=== PATIENT | female | born 1950 | race Caucasian/White ===

== ENCOUNTER 2024-02-09 16:02 | Inpatient (IN) | payer OTHER, SELFPAY ==
[2024-02-09] VITALS (15 sets, daily range): BP systolic 106–144; BP diastolic 55–75; PULSE 52–55; BMI 27.2; BMI 25.9
[2024-02-09 11:28] LABS: Glucose - Point of Care 174 mg/dl (70-99)
--- NOTE | 2024-02-09 12:09 | ED.GENMED ---
History of Present Illness
<Coty Oreilly PA-C - Last Filed: 02/09/24 16:38>
General
Chief Complaint: Fainting/Passed Out
Source: patient
Exam Limitations: none
Time Seen by Provider: 02/09/24 11:47
Nursing documentation reviewed up to this point in time: agreed with
History of Present Illness
History of Present Illness:
Patient is a 73-year-old female with history of PE on Eliquis presenting to the emergency department following syncopal event this morning. Patient unable to contribute to history given Alzheimer's. Patient's states they are both sitting
down at the breakfast table eating when he was reading the newspaper and looked over and patient was slumped over. states that she seemed to be 'unconscious 'and not responding to him for about 3 minutes. When patient did wake up she had
an episode of vomiting. Patient's states she did not complain of any preceding symptoms prior to loss of consciousness. Patient states it was 'sudden'.
At this time�patient is asymptomatic and specifically denies any chest pain, shortness of breath, headache, dizziness, numbness/tingling, nausea/vomiting, or abdominal pain.
Patient's does report similar event a few weeks ago, although at that time she was standing. In addition�patient had an episode about 6 months ago while moving from bathtub to shower and it was thought to be due to a vasovagal response.
Patient does have a history of pulmonary embolism for which she takes Eliquis 5 mg twice a day.
Past History
<Coty Oreilly PA-C - Last Filed: 02/09/24 16:38>
Past History
ED Past Medical History: Hypercholesterolemia and Other (Early dementia, migraines)
ED Past Surgical History: Orthopedic
Social History
Tobacco: Non-smoker
Review of Systems
<Coty Oreilly PA-C - Last Filed: 02/09/24 16:38>
Review of Systems
Allergies reviewed?: Yes
All Other Systems: ROS reviewed and negative except as documented in HPI and ROS
Phy Exam
<Coty Oreilly PA-C - Last Filed: 02/09/24 16:38>
Physical Exam
Physical Exam:
Vitals: Patient's vital signs are stable. Afebrile
General: Patient is well appearing, no acute distress
Skin: Warm and dry, no rashes or lesions
Head: Normocephalic, atraumatic
Eyes: Sclera nonicteric. EOMs intact. No nystagmus.
Throat: Protecting airway
Neck: Normal ROM, no cervical spine tenderness, no meningismus
Cardiac: Regular rate and rhythm, no murmurs.
Pulm: Normal respiratory effort, no wheezes, rales, rhonchi heard on exam.
Abdomen: Abdomen soft. No abdominal tenderness.
Extremities: No evidence of cyanosis or edema
Neuro: Alert. Grossly intact.
Psychiatric: Normal affect.
Course
<Coty Oreilly PA-C - Last Filed: 02/09/24 16:38>
Orders/Labs/Results
Orders:
Orders
02/09/24 11:24
Electrocardiogram (*1) Urgent
Reason for Study: Syncope
EKG- Treatment ONCE
02/09/24 12:22
Orthostatic VS- Treatment ONCE
0.9% Sodium Chloride 1000 ml [Nss] 1,000 ml IV BOLUS
02/09/24 12:53
Complete Blood Count/With Diff Urgent
Comprehensive Metabolic Panel Urgent
TSH Reflex To Free T4 Stat
Troponin I Urgent
02/09/24 15:20
Echo 2D MMode Color/Doppler Routine
Reason for Study: syncope
02/09/24 15:43
EEG Routine Routine
Reason for Exam: syncope with shaking
MRI Brain [MR Brain Without Contrast] Routine
Comment:
Reason For Exam: syncope
Recent pill cam endoscopy?: No
Carotid US [US Cerebrovascular] Routine
Comment:
Reason For Exam: r/o carotid stenosis
02/09/24 15:44
CARDIOLOGY CONSULT Routine
Consulting Provider: Carole Hogan
Was physician already notified: Yes
Reason for consult: syncope
02/09/24 15:50
Admit/Transfer Patient As Directed
Co-Sign Provider:
Level of Care: Inpatient admission
Assign to:: Telemetry
Physician / Group: billie jenkins
Diagnosis: syncope
Reason for Telemetry: Syncope
Date to Stop Telemetry: 02/11/24
Time to Stop Telemetry: 11:00
Reason for Hospitalization: syncope
Expected length of stay greater than two midnights?: Yes
ELOS- Estimated Length of Stay in days: 3
I certify the patient meets the requirements for IP care: Yes
PRN Pain Medication Management As Directed
May give lesser potent ordered pain med per pt: No
preference::
Protocol:: Medication orders for pain may NOT be administered in
a manner that defers to patient preference. Follow
all order instructions as written.
Contact provider if ordering parameters for pain need
to be adjusted.
02/09/24 15:54
Code Status As Directed
Resuscitation Status: Full Code
02/09/24 20:00
Apixaban [Eliquis] 5 mg PO BID
Memantine HCl [Namenda] 10 mg PO BID
melatonin 10 mg PO BID
02/09/24 22:00
donepezil 23 mg PO HS
02/10/24 06:00
TSH Reflex To Free T4 IN AM
Levothyroxine [Synthroid] 50 mcg PO DAILY@0600
02/10/24 08:00
Cholecalciferol (Vitamin D3) [VITAMIN D3 (cholecalciferol)] 125 mcg PO DAILY
Cyanocobalamin [Vitamin B-12] 1,000 mcg PO DAILY
[place] Orotate Capsules 1,000 mcg PO DAILY
02/11/24 11:00
DC Protocol for Telemetry ONCE
Abnormal Lab Results
02/09/24 02/09/24
11:27 12:53
RBC 4.16 L 10^6/uL
(4.20-5.40)
MCH 32.9 H pg
(27.0-31.0)
Absolute Lymphs (auto) 1.1 L 10^3/uL
(1.2-3.4)
Immature Gran % 0.6 H %
(0-0.5)
Lymphocytes % 16.7 L %
(20.5-51.1)
Glucose 168 H mg/dl
(70-99)
POC Glucose 174 H mg/dl
(70-99)
02/09/24 12:53
02/09/24 12:53
Vital Signs
Initial and Last Documented VS:
Initial Vital Signs
Temp Pulse Resp BP Pulse Ox
98.5 F 53 18 113/56 97
02/09/24 11:24 02/09/24 11:24 02/09/24 11:24 02/09/24 11:24 02/09/24 11:24
Last Documented Vital Signs
Temp Pulse Resp BP Pulse Ox
98.5 F 48 16 126/64 96
02/09/24 11:24 02/09/24 15:00 02/09/24 14:00 02/09/24 15:00 02/09/24 15:00
<Yoana Lomeli MD - Last Filed: 02/09/24 13:14>
Orders/Labs/Results
Orders:
Orders
02/09/24 11:24
Electrocardiogram (*1) Urgent
Reason for Study: Syncope
EKG- Treatment ONCE
02/09/24 12:22
Orthostatic VS- Treatment ONCE
0.9% Sodium Chloride 1000 ml [Nss] 1,000 ml IV BOLUS
02/09/24 12:53
Complete Blood Count/With Diff Urgent
Comprehensive Metabolic Panel Urgent
TSH Reflex To Free T4 Stat
Troponin I Urgent
02/09/24 15:20
Echo 2D MMode Color/Doppler Routine
Reason for Study: syncope
02/09/24 15:43
EEG Routine Routine
Reason for Exam: syncope with shaking
MRI Brain [MR Brain Without Contrast] Routine
Comment:
Reason For Exam: syncope
Recent pill cam endoscopy?: No
Carotid US [US Cerebrovascular] Routine
Comment:
Reason For Exam: r/o carotid stenosis
02/09/24 15:44
CARDIOLOGY CONSULT Routine
Consulting Provider: Carole Hogan
Was physician already notified: Yes
Reason for consult: syncope
02/09/24 15:50
Admit/Transfer Patient As Directed
Co-Sign Provider:
Level of Care: Inpatient admission
Assign to:: Telemetry
Physician / Group: billie jenkins
Diagnosis: syncope
Reason for Telemetry: Syncope
Date to Stop Telemetry: 02/11/24
Time to Stop Telemetry: 11:00
Reason for Hospitalization: syncope
Expected length of stay greater than two midnights?: Yes
ELOS- Estimated Length of Stay in days: 3
I certify the patient meets the requirements for IP care: Yes
PRN Pain Medication Management As Directed
May give lesser potent ordered pain med per pt: No
preference::
Protocol:: Medication orders for pain may NOT be administered in
a manner that defers to patient preference. Follow
all order instructions as written.
Contact provider if ordering parameters for pain need
to be adjusted.
02/09/24 15:54
Code Status As Directed
Resuscitation Status: Full Code
02/09/24 20:00
Apixaban [Eliquis] 5 mg PO BID
Memantine HCl [Namenda] 10 mg PO BID
melatonin 10 mg PO BID
02/09/24 22:00
donepezil 23 mg PO HS
02/10/24 06:00
TSH Reflex To Free T4 IN AM
Levothyroxine [Synthroid] 50 mcg PO DAILY@0600
02/10/24 08:00
Cholecalciferol (Vitamin D3) [VITAMIN D3 (cholecalciferol)] 125 mcg PO DAILY
Cyanocobalamin [Vitamin B-12] 1,000 mcg PO DAILY
[place] Orotate Capsules 1,000 mcg PO DAILY
02/11/24 11:00
DC Protocol for Telemetry ONCE
Abnormal Lab Results
02/09/24 02/09/24
11:27 12:53
RBC 4.16 L 10^6/uL
(4.20-5.40)
MCH 32.9 H pg
(27.0-31.0)
Absolute Lymphs (auto) 1.1 L 10^3/uL
(1.2-3.4)
Immature Gran % 0.6 H %
(0-0.5)
Lymphocytes % 16.7 L %
(20.5-51.1)
Glucose 168 H mg/dl
(70-99)
POC Glucose 174 H mg/dl
(70-99)
02/09/24 12:53
02/09/24 12:53
Vital Signs
Initial and Last Documented VS:
Initial Vital Signs
Temp Pulse Resp BP Pulse Ox
98.5 F 53 18 113/56 97
02/09/24 11:24 02/09/24 11:24 02/09/24 11:24 02/09/24 11:24 02/09/24 11:24
Last Documented Vital Signs
Temp Pulse Resp BP Pulse Ox
98.5 F 48 16 126/64 96
02/09/24 11:24 02/09/24 15:00 02/09/24 14:00 02/09/24 15:00 02/09/24 15:00
<Coty Oreilly PA-C - Last Filed: 02/09/24 16:38>
MDM/Problems Addressed
Differential Diagnosis Includes:
Not limited to: Cardiac arrhythmia, viral illness, orthostatic hypotension, vasovagal syncope, doubt PE
MDM/Problems Addressed:
73-year-old female with history Alzheimer's, PE on Eliquis presenting to the emergency department following sudden syncopal event lasting approximately 3 minutes this morning. Patient's reports a sudden syncopal event while patient was
sitting at kitchen table with no prodromal symptoms. Per patient's �patient was somewhat nonresponsive for approximately 3 minutes although breathing. Patient unable to contribute to history due to Alzheimer's. At time of my evaluation
patient is asymptomatic. Patient is borderline bradycardic although is otherwise hemodynamically stable. She is afebrile. Physical exam as above. Patient is well-appearing, in no apparent distress. Heart regular rate and rhythm. Lungs are
clear bilaterally. Abdomen is soft and nontender. Patient is perfusing well. No clinical evidence of DVT on exam. Differential broad at this time although considerations include possible cardiac arrhythmia, heart block, viral illness,
orthostatic hypotension. Do not suspect PE given patient is not hypoxic stable vital signs and compliant with Eliquis. EKG was obtained in triage which show sinus bradycardia without any acute ischemic findings. Will check basic labs, orthostatic
vital signs. Will initiate IV fluids. Will closely monitor and reassess. Anticipate admission given syncopal event with no clear prodrome.
Chronic conditions affecting care:
PE on Eliquis
Acute Exacerbation and/or Progression of Chronic Illness:
N/A
<Coty Oreilly PA-C - Last Filed: 02/09/24 16:38>
*Pulse Oximetry
Patient hypoxic: no
*EKG
Interpreted by ED Provider?: Yes
EKG Intrepretation Date: 02/09/24
Interpretation: abnormal
Comparison EKG: changes noted
Heart Rate: 54
Rate: bradycardiac
Rhythm: sinus
Ferguson: normal axis
Ischemia: non-specific ST changes
*Senior Biostatistician/Group Leader Interpretation
Rate: normal
Interpretation: normal
Heart Rate: 50
Rhythm: sinus
*Critical Care Note
Total Time (30-74mins, 75-104mins- exclusive of procedures): Not Applicable
<Coty Oreilly PA-C - Last Filed: 02/09/24 16:38>
Patient Management
Discussion with other providers: Hospitalist
Escalation/DeEscalation of care consider admission/obs:
Admit for further monitoring/evaluation
<Coty Oreilly PA-C - Last Filed: 02/09/24 16:38>
Update Note
Update Note:
Update: Labs reviewed. No clinically significant abnormalities on CBC or chemistry panel. Troponin is normal. TSH within normal levels. Orthostatic vital signs normal. Patient does remain asymptomatic at this time. Other workup in emergency
department negative at this time�feels sudden syncopal event without prodrome warrants admission for further observation/evaluation. Patient may benefit from echo and cardiac evaluation to rule out underlying structural heart disease versus
arrhythmia. Patient and patient's agreeable to admission. Patient accepted to hospital service in stable condition. Patient seen by attending physician.
ED Attending Note
<Coty Oreilly PA-C - Last Filed: 02/09/24 16:38>
-
Portions of this chart may have been created with voice recognition software.� Occasional wrong word or��sound alike� substitutions may have occurred due to the inherent limitations of voice recognition software.
<Yoana Lomeli MD - Last Filed: 02/09/24 13:14>
ED Attending Note
Patient seen and examined by attending physician: Yes
I performed the substantive portion of visit, reviewed & personally made and approve the management plan that is documented in note by myself or SMITA.: Yes
ED Attending Note:
Patient is a 73-year-old woman with history of Alzheimer's, PE on Eliquis presenting to the emergency department after syncopal event. Patient has no recollection of the event. States that she was feeling fine and currently has complaints.
Patient's is at bedside who states that they were eating breakfast when he looked up and patient was slumped over and unresponsive for 3 minutes. She was not pale or cyanotic. She woke up slightly confused. She has passed out once before
without a prodrome. Has never been worked up. Vitals here notable for heart rate in the 50s. Exam shows a woman who is well-appearing. She is a regular rate and rhythm. Abdomen is benign. Given that the syncopal event was without a prodrome I
am concerned about cardiac etiology. History and exam not consistent with vasovagal. Will check blood work EKG. Patient will need admission for monitoring.
Discharge Plan
Departure
Patient Disposition: Admit
Date of Disposition: 02/09/24
Time of Disposition: 14:27
Presentation/result/management discussed w/ accepting MD/DO: Hospitalist
Discharge Problem:
Syncope
Interventions
Interventions:
*Risk Screen - Suicide Last Done: 02/09/24 11:24
*General Assessment Last Done: 02/09/24 11:24
*Neglect/Abuse Screening Last Done: 02/09/24 11:24
ED- Fall Risk Assessment Last Done: 02/09/24 12:04
ED- Cardiac Assessment Last Done: 02/09/24 12:04
ED- Neurological Assessment Last Done: 02/09/24 12:04
[2024-02-09] MEDS: NSS 1000 IV (12:52)
[2024-02-09 13:10] LABS: % Eosinophils 2.1 % (0-6); % Immature Granulocytes 0.6 % (0-0.5); % Lymphocytes 16.7 % (20.5-51.1); % Monocytes 6.9 % (1.7-9.3); % Neutrophils 72.7 % (42.2-75.2); Absolute Basophils 0.1 10^3/uL (0-0.2); Absolute Eosinophils 0.1 10^3/uL (0-0.7); Absolute Lymphocytes 1.1 10^3/uL (1.2-3.4); Absolute Monocytes 0.5 10^3/uL (0.1-0.6); Absolute Neutrophils 4.9 10^3/uL (1.4-6.5); Hematocrit 40.3 % (37.0-47.0); Hemoglobin 13.7 g/dL (12.0-16.0); Mean Corpuscular Hgb 32.9 pg (27.0-31.0); Mean Corpuscular Volume 96.9 fL (81.0-99.0); Mean Platelet Volume 10.4 fL (7.4-10.4); Nucleated Red Blood Cells % 0 %; Platelet Count 299 10^3/uL (130-400); Red Blood Cell Count 4.16 10^6/uL (4.20-5.40); Red Cell Dist. Width 13.9 % (11.5-14.5); White Blood Cell Count 6.7 10^3/uL (4.8-10.8)
[2024-02-09 13:26] LABS: ALT (SGPT) 11 U/L (0-35); AST (SGOT) 19 U/L (14-36); Albumin 4.2 g/dl (3.5-5.0); Alkaline Phosphatase 67 U/L (38-126); Blood Urea Nitrogen 15 mg/dl (7-17); Calcium 9.6 mg/dl (8.4-10.2); Carbon Dioxide 27 mmol/L (22-30); Chloride 103 mmol/L (98-107); Estimated Creatinine Clearance 53 ml/min; Glucose 168 mg/dl (70-99); Potassium 4.4 mmol/L (3.5-5.1); Sodium 140 mmol/L (135-145); Total Bilirubin 1.1 mg/dl (0.2-1.3); Total Protein 6.6 g/dl (6.3-8.2); eGFR > 60.00
[2024-02-09 13:31] LABS: Troponin I < 0.012 ng/ml
[2024-02-09 14:03] LABS: TSH Reflex To Free T4 3.21 uIU/ml (0.47-4.68)
--- NOTE | 2024-02-09 14:09 | EDRN ---
Pt unpacked his bag looking for a phone injection mold tooling technician, did not bring one, ER staff provided injection mold tooling technician for pt to use while he is in the ER.
--- NOTE | 2024-02-09 15:58 | CON.CAR ---
Addendum entered and electronically signed by Carole Hogan MD 02/09/24 17:07:
I saw and examined the patient.
The BARREL BUILDER's note was reviewed and I agree with the note.
Comment: Patients is at the bedside. She has advance OBS. She was sitting at breakfast and became unresponsive. Otherwise, she has been doing some PT and at times complains of lightheadedness. Currently she feels well. On exam, she is
cooperative with a regular rate and rhythm normal S1-S2 no murmur rubs gallops were appreciated extremities are warm and perfused. Lungs are clear to auscultation bilaterally. EKG shows sinus bradycardia with nonspecific T wave flattening. Echo
is being done at the bedside and on my brief review of pictures obtained so far it appears to have normal function, but full report to follow. I explained to him unfortunately syncope is usually made by history. Given its proximity to eating, this
could be a vasovagal event. However we will monitor on telemetry. She has sinus bradycardia but this is chronic and was seen in her last office visit with Dr. Bojorquez. I do not suspect this is the cause. In fact I would prefer to continue
beta-jez given her history of a mildly reduced ejection fraction that has recovered. Will follow-up report of echo. Will follow.
Original Note:
Consultation
Consultation Request
Date/Time Consultation Requested: 02/09/24 1544
Date/Time Consultation Performed: 02/09/24 1530
Requesting Provider: Dr. Antoni Richter
Performing Provider: Britt LEAHY for Dr. Hogan
Reason for Consultation: syncope
Medical History
-
Chief Complaint: syncope
History of Present Illness:
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
her noted that she was slumped in the chair during breakfast today. Her chin was down, her eyes were open, but she was not responding for what he believes was about 3 minutes. Prior to that, she had been her normal self without any
complaints. She had another similar episode while she was standing in the bathroom about 3 weeks ago and her brought her down to the floor. About 8 months ago, she passed out in the shower and primary care doc though likely vagal. Otherwise,
she has been doing PT recently and has mentioned she feels woozy at times to her . She is in no distress at the time of my assessment. History obtained from due to her Alzheimer's dementia. Only med change recently was an increase in
melatonin dosing.
Past Medical History
Past Medical History: Hypothyroidism and Other (as above)
Social History
Personal:
Living: With Family
Family History
Family History: Reviewed & Not Pertinent
Allergies / Home Medications
Allergy/AdvReac Type Severity Reaction Status Date / Time
latex Allergy Hives Verified 06/12/21 23:07
procaine [From Novocain] Allergy Unknown Verified 06/12/21 18:51
�Medication �Instructions �Recorded �Confirmed �Type
cholecalciferol (vitamin D3) 25 125 mcg PO DAILY 06/12/21 02/09/24 History
mcg (1,000 unit) tablet
donepezil 23 mg tablet 23 mg PO HS 06/12/21 02/09/24 History
levothyroxine 50 mcg tablet 50 mcg PO DAILY 06/12/21 02/09/24 History
melatonin 10 mg tablet 10 mg PO BID 06/12/21 02/09/24 History
memantine 10 mg tablet 10 mg PO DAILY 06/12/21 02/09/24 History
metoprolol succinate 25 mg 25 mg PO DAILY 06/12/21 02/09/24 History
tablet,extended release 24 hr
[place] Orotate Capsules 1,000 mcg PO DAILY 02/09/24 02/09/24 History
apixaban 5 mg tablet (Eliquis) 5 mg PO BID 02/09/24 02/09/24 History
cyanocobalamin (vitamin B-12) 1,000 mcg PO DAILY 02/09/24 02/09/24 History
1,000 mcg tablet
Review of Systems
-
History Source: Patient
All other systems: Negative unless noted
Cardiac: Syncope
Physical Exam
Vital Signs
Temp Pulse Resp BP Pulse Ox
98.5 F 48 16 126/64 96
02/09/24 11:24 02/09/24 15:00 02/09/24 14:00 02/09/24 15:00 02/09/24 15:00
Lab Results
02/09/24 12:53
02/09/24 12:53
Troponin I < 0.012 ng/ml 02/09/24 12:53
Physical Exam
General: Well Developed and No Apparent Distress
HEENT: Normocephalic and Anicteric
Respiratory: Clear and Non Labored Respirations
Cardiac: Regular Rhythm (SB)
Neuro: Awake, Alert and Other (memory impairment)
Psych: Calm
Impression / Plan
-
Loss of consciousness:
-etiology unclear
-follow telemetry, obtain echo
-ortho BP's negative in ER, though she was sitting for most recent event
-primary team also looking into neuro cause
Alzheimer's dementia:
-on medical management
-she is on Namenda and Aricept, as well as OTC supplements of lithium orotate and melatonin
Improved NICM:
-most recent EF 50-55%
-on metoprolol
Hx PE's:
-on Eliquis- continue
Data Reviewed
-
EKG: Tracing Personally Visualized and interpreted (SB 54 BPM, no acute change from previous)
Medical Tests (Nuc Med, Echo etc): Report Reviewed by me (echo 03/17/21: Mild concentric left ventricular hypertrophy. LV ejection fraction is 50-55%. Mild mitral regurgitation.)
Labs: Labs Reviewed by me
--- NOTE | 2024-02-09 16:04 | HPS.HSE ---
Family Physician
-
Family Physician: Kanwal Chatman
Chief Complaint
-
syncope
History of Present Illness
73 female history of Alzheimer's dementia, PE on Eliquis, hypothyroidism presenting for passing out at the breakfast table after eating. Per who was sitting across from her, noticed that she was slumped over head forward, with heavy
breathing, event lasted for approximately 3 minutes however was not back to self for another 17 minutes after that total time 20 minutes. She denied having any chest discomfort palpitations shortness of breath sore throat runny nose numbness
tingling loss of sensations weakness blurry vision ringing in the ears during this event. reports this has happened previously 3 weeks ago and 8 months ago. 3 weeks ago he was brushing her hair after a shower and she passed out at that
time. 8 months ago she was getting into the shower and passed out at that time it was believed to be a vasovagal event. He states her baseline heart rate is around 64 bpm, she is apparently on beta-jez for PE. Currently no changes in
medications however was planning on increasing melatonin.
Social history does not smoke cigarettes does not drink alcohol no drug use
Family history nephew with PE
Past surgical history orthopedic
Allergies latex procaine
10 point ROS is negative apart from what ever is positive above
Medical History
Past Medical History
Past Medical History: Reports Dementia and Hypothyroidism
Past Surgical History: Reports Orthopedic
Social History
Unable to obtain full social history at this time due to: Dementia
Tobacco: Non-smoker
Alcohol: None
Drug: None
Personal:
Living: With Family
Family History
Family History: Other
Allergies / Home Medications
Allergies reflects when Allergies were last updated in [facility].
Home Medications with original date entered in [facility]
Allergy/Medication List:
Allergies
Allergy/AdvReac Type Severity Reaction Status Date / Time
latex Allergy Hives Verified 06/12/21 23:07
procaine [From Novocain] Allergy Unknown Verified 06/12/21 18:51
Home Medications
cholecalciferol (vitamin D3) 25 mcg (1,000 unit) tablet 125 mcg PO DAILY 06/12/21
donepezil 23 mg tablet 23 mg PO HS 06/12/21
levothyroxine 50 mcg tablet 50 mcg PO DAILY 06/12/21
melatonin 10 mg tablet 10 mg PO BID 06/12/21
memantine 10 mg tablet 10 mg PO DAILY 06/12/21
metoprolol succinate 25 mg tablet,extended release 24 hr 25 mg PO DAILY 06/12/21
[place] Orotate Capsules 1,000 mcg PO DAILY 02/09/24
apixaban 5 mg tablet (Eliquis) 5 mg PO BID 02/09/24
cyanocobalamin (vitamin B-12) 1,000 mcg tablet 1,000 mcg PO DAILY 02/09/24
Review of Systems
-
Unable to obtain full review of systems at this time due to: Dementia
Physical Exam
Vital Signs
Vital Signs
Temp Pulse Resp BP Pulse Ox
98.5 F 48 16 126/64 96
02/09/24 11:24 02/09/24 15:00 02/09/24 14:00 02/09/24 15:00 02/09/24 15:00
Physical Exam
General: Well Developed and Well Nourished
HEENT: NormoCephalic and Anicteric
Respiratory: Clear
Cardiac: S1/S2 and Bradycardia
Breast: Deferred by me
GI: Soft, Non Tender, Non Distended and Normal Bowel Sounds
Musculoskeletal: No Edema
Skin: Warm
Neuro: Awake and Alert
Psych: Calm
Laboratory Results
-
02/09/24 12:53
02/09/24 12:53
Laboratory Results
Total Bilirubin 1.1 mg/dl (0.2-1.3) 02/09/24 12:53
AST 19 U/L (14-36) 02/09/24 12:53
ALT 11 U/L (0-35) 02/09/24 12:53
Alkaline Phosphatase 67 U/L (38-126) 02/09/24 12:53
Troponin I < 0.012 ng/ml 02/09/24 12:53
Impression/Plan
-
Physical Exam
NAD, resting comfortably in bed
Scleral anicteric
Moist mucous membranes, no bite alberts on her tongue
No JVD
CTA bilateral
Normal S1-S2 no murmurs, sinus bradycardia on telemetry
Soft nontender nondistended bowel sounds active
No peripheral pitting edema
Moves extremities spontaneously
AA
AP
Syncope vs seizure vs symptomatic bradycardia/arrhythmia vs TIA
-Monitor on telemetry
-Check TSH
-Check 2D echo
-Hold beta-jez
-Check MRI brain
-Check carotid ultrasound
-Check EEG
-Orthostatic vitals
PE -chronic
-Continue Eliquis 5 mg p.o. twice daily
Alzheimer's dementia
-Provide delirium precautions.
-- Turn the lights off at night turn him on during the day
-- Open the blinds during the day close the blinds at night
-- Practice good sleep hygiene
-Continue amantadine
-Continue donepezil (qtc 432) has been known to cause bradycardia, may need to discuss with DC'ing this agent
-Apparently on lithium 1 g daily for Alzheimer's as she has no history of bipolar which I confirmed with her
--Will check lithium level has been associated with brugada syndrome. will need to discuss this with Cardiology.,
-Continue melatonin twice a day
Hypothyroidism
-Continue levothyroxine
-Check TFT
[2024-02-09 19:48] LABS: Lithium < 0.2 mmol/L (0.6-1.2)
[2024-02-09] MEDS: NAMENDA 10 MG PO (19:49)
[2024-02-09] MEDS: ELIQUIS 5 MG PO (19:49)
[2024-02-10 03:40] VITALS: BP 139/70
[2024-02-10] MEDS: SYNTHROID 50 MCG PO (05:47)
[2024-02-10 07:30] VITALS: BP 151/96
--- NOTE | 2024-02-10 08:20 | W.PN.CD ---
Addendum entered and electronically signed by Rudolph Bojorquez DO 02/10/24 09:26:
Discussed with EP.
Patient will need a 30 day wearable loop recorder after discharge.
If this is unrevealing, we can consider an implantable loop recorder.
Original Note:
Today's Communication / Plan
-
Check Mg/PO4.
Decrease metoprolol to 12.5 mg daily.
MCOT vs. ILR vs. conservative management.
Ambulate.
Impression / Plan
-
Impression/Plan: 73 y/o female with history of recurrent PE on apixaban, alzheimer's dementia and recovered non-ischemic cardiomyopathy admitted with LOC.
#Loss of consciousness
-Acute, recurrent.
-Etiology unclear. Given proximity to eating (prior episode in the shower), vasovagal seems likely.
-Orthostatic BP's negative in ER, though she was sitting for most recent event.
-DDx includes arrhythmogenic (VT/VF/PSVT, bradycardia/pause), vasovagal, PE and non-cardiac (seizure/pseudoseizure).
-Li ++ level < 0.2.
-Echocardiogram shows normalized LV function, making VT/VF less likely, though certainly not ruling out.
-She denies chest pain and is not hypoxic, combined with a normal TTE makes recurrent PE unlikely.
-Check Mg/PO4 levels.
-Consider outpatient monitor (MCOT vs. implantable loop recorder). This will likely depend on how aggressive patient/family want to be.
-The patient is mildly bradycardic but her EKG is otherwise unremarkable. Decrease metoprolol to 12.5 mg daily.
#Alzheimer's dementia:
-Chronic, progressive.
-Medical management with memantine and donepezil, as well as OTC supplements of lithium orotate and melatonin.
#Recovered NICM:
-Chronic, stable.
-LVEF 55-60%.
-Continue metoprolol but decrease dose in light of bradycardia.
#Hx PE's:
-Chronic, stable.
-Continue apixaban.
Subjective/Interval History:
No acute events.
No subjective complaints.
DATA:
MRI Brain, 02/09/2024:
IMPRESSION:
No acute intracranial abnormality noted.
Carotid Duplex, 02/09/2024:
IMPRESSION: Minimal calcified carotid bulb plaque on each side, measurements suggestive of less than 50% stenosis on each side as per modified Society of Radiologists in Ultrasound consensus criteria (IAC carotid criteria white paper, 2020).
TTE, 02/09/2024:
CONCLUSIONS
Normal LV size and function with no regional wall motion abnormalities.
Left ventricular ejection fraction is 55-60% by Cowart's method of discs.
Mild concentric LVH.
Normal right ventricular size and function.
No significant valvular disease.
Compared to prior from March 17, 2021, no significant change.
Physical Exam
Vital Signs/Labs
Vital Signs
Temp Pulse Resp BP Pulse Ox
36.7 C 55 18 139/70 95
02/10/24 03:40 02/10/24 03:40 02/10/24 03:40 02/10/24 03:40 02/10/24 03:40
02/08/24 02/09/24 02/10/24
11:59 11:59 11:59
Actual Weight 76.5 kg 74.888 kg
02/09/24 12:53
02/09/24 12:53
LAB Results
02/09/24
12:53
Troponin I < 0.012
Physical Exam
Constitutional: No acute distress and Comfortable
EENT: Anicteric and Moist mucous membranes
Cardiovascular: Rhythm & rate is regular, Pedal edema is absent, JVD pressure is normal, S1S2 is normal and Murmur/rub/gallop absent
Respiratory: Respiratory effort normal, Lungs clear to auscul., Wheeze Absent, Crackles Absent and Rhonchi Absent
GI: Soft, Distention absent, Flat, Non tender and Normal bowel sounds
Neuro/Psych: Alert
Data Reviewed
-
Date of Service: February 10, 2024
Medical Decision Making: Reviewed Test Results, Independent Historian Assessment and Test Interpretation
EKG: Tracing Personally Visualized and interpreted and Report Reviewed by me
Echo: Report Reviewed by me
X-Ray/CT/US/MRI/NUC/PET: Image Personally Visualized and interpreted and Report Reviewed by me
Medical Tests (PFT, Pathology etc): Report Reviewed by me
Labs: Labs Reviewed by me
[2024-02-10 08:45] LABS: TSH Reflex To Free T4 1.95 uIU/ml (0.47-4.68)
[2024-02-10] MEDS: ELIQUIS 5 MG PO (09:11)
[2024-02-10] MEDS: VITAMIN B-12 1000 MCG PO (09:12)
[2024-02-10] MEDS: VITAMIN D3 (cholecalciferol) 125 MCG PO (09:12)
[2024-02-10] MEDS: NAMENDA 10 MG PO (09:12)
[2024-02-10] MEDS: TOPROL XL 12.5 MG PO (09:26)
[2024-02-10 09:50] LABS: Magnesium 1.9 mg/dl (1.6-2.3); Phosphorus 3.6 mg/dl (2.5-4.5)
[2024-02-10 11:23] VITALS: BP 110/56; BP 118/63; BP 135/64; PULSE 55; PULSE 63; PULSE 84
--- NOTE | 2024-02-10 11:32 | PTCARENOTE ---
Patient resting comfortably in bed, voiding in bathroom with stand by guidance from who is her primary assurance services manager health care. She went to EEG this am. Orthostatic VS series obtained- pt had SBP drop sitting to stand. In the middle of standing blood
pressure, patient began to lean back. RN put hand on patient lower back and patient regained balance. Pt denied lightheadedness preceding her leaning. She was able to stand and get back into bed without assistance or difficulty. at bedside
witnessed orthostatic VS.
[2024-02-10 11:45] VITALS: BP 118/63
--- NOTE | 2024-02-10 11:55 | EEG.RPT ---
Electroencephalogram Report
Recording
Date of EE02/10/24
Type of EEG: Routine
Length of EEG recordin minutes
Done with Video Recording: Yes
Patient Status: Inpatient
Recording Conditions: Awake and Drowsy
Hyperventilation Performed: No
Photic Stimulation Performed: Yes
Report
LESS THAN 1 HOUR REPORT
LESS THAN 1 HOUR EEG INTERPRETATION:
Mildly to moderately abnormal study for age based on bursts of frontally predominant intermittent rhythmic delta activity (FIRDA) and generalized slowing demonstrated bihemispherically equally
CLINICAL CORRELATION:
In comparison with the most recent study performed which was unremarkable, this study was suggestive of a frontally predominant nonconvulsive seizure pattern. A similar pattern has been demonstrated for this patient in prior studies
Clinical correlation is advised.
METHODS:
A 21 channel digitized electroencephalogram (EEG) was performed in the clinical neurophysiology laboratory. The 10/20 international system of electrode placement was used with ECG and lateral/vertical eye movements recorded. The [employer]
quantitative EEG system was utilized.
ELECTROENCEPHALOGRAPHER IMPRESSION(S):
Quality of study
Fair�good due to muscle artifact
Background
Medium amplitude
Fair anterior-posterior voltage gradient differentiation
Theta maximal background demonstrated
Sleep
Drowsiness present
Hyperventilation
Not performed
Photic Stimulation
Failed to activate the record
ECG
Normal rhythm
Abnormal Activity
Intermittent frontally predominant semi-rhythmic and rhythmic delta (1 to 2 Hz) activity lasting approximately 1 second which was of medium�high amplitude
--- NOTE | 2024-02-10 12:16 | W.PN.HOSP.TC ---
Today's Communication/Plan
-
DC home
Assessment / Plan
Assessment / Plan
NAD, resting comfortably in bed
Scleral anicteric
Moist mucous membranes
No JVD
CTA bilateral
Normal S1-S2 no murmurs
Soft nontender nondistended bowel sounds active
No peripheral pitting edema
Moves extremities spontaneously
AAOx3
Syncope vs seizure vs symptomatic bradycardia/arrhythmia vs TIA
-Monitor on telemetry: No events overnight
-TSH within normal
-2D echo: EF 55-60%, no WMA
-Resume beta-jez at lower dose of 12.5mg QD
-Cardiology rec outpt follow up with needing a 30day wearable monitor, if no findings then will need implanted monitor
-MRI brain: Without evidence of acute infarct
-Carotid ultrasound: B/l 50% stenosis. Unlikely cause and as not >70-<99% not indicated for intervention. Outpatient vascular surgery follow up and will need repeat ultrasound within 1yr
-EEG: I spoke with Neuro as EEG was frontally predominant nonconvulsive seizure pattern. Did not believe she required AED's. Can be discharged home without AED's, did not need to be seen by Neuro. Will provide outpatient neuro eval
-Orthostatic vitals: + but asymptoamtic and wants to go home
PE -chronic
-Continue Eliquis 5 mg p.o. twice daily
Alzheimer's dementia
-Provide delirium precautions.
-- Turn the lights off at night turn him on during the day
-- Open the blinds during the day close the blinds at night
-- Practice good sleep hygiene
-Continue amantadine
-Continue donepezil (qtc 432) has been known to cause bradycardia, may need to discuss with DC'ing this agent
-Apparently on lithium 1 g daily for Alzheimer's as she has no history of bipolar which I confirmed with her
--Will check lithium level has been associated with brugada syndrome. will need to discuss this with Cardiology.,
-Continue melatonin twice a day
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
Hypothyroidism
-Continue levothyroxine
DC home. wants to follow up with cardiology as an outpatient for the wearable monitor and does nto want to wait.
Anticipated Discharge: Today
Subjective/Interval History
-
Date of Service: February 10, 2024
seen and exmained. no new comaplitns
no syncopal events
ready to go home
Objective Data
-
Vital Signs:
Vital Signs
Temp Pulse Resp BP Pulse Ox
98.0 F 58 18 151/96 98
02/10/24 11:25 02/10/24 07:30 02/10/24 07:30 02/10/24 07:30 02/10/24 11:25
I&O
02/09/24 02/10/24 02/11/24
06:59 06:59 06:59
Intake Total 960 / 960
Balance 960 / 960
--- NOTE | 2024-02-10 12:30 | W.DCSUMMARY ---
Discharge Summary
Discharge Data
Date of Admission: 02/09/24
Date of Discharge: 02/10/24
-
Pending Results: No
Hospital Course
73 female history of Alzheimer's dementia, PE on Eliquis, hypothyroidism, HFrecEF presented for passing out at the breakfast table after eating. Concern for syncope therefore was admitted to hospital. MRI brain completed along with EEG and 2D
heart ultrasound. Evaluated by cardiology believed to be related to vasovagal event. Recommend outpatient monitor. Therefore will need to follow-up with outpatient cardiology. Metoprolol succinate has been decreased due to bradycardia into the
50s. Will need to follow up with Cardiology as an outpaitent as they have spoken to EP and recommended a 30day wearable monitor, if no events then will need implanted monitor.
Discussed EEG findings with neurology over [place] [facility]. No indication for AEDs. Can be seen as outpatient
Carotid stenosis with 50% occlusion. Outpatient vascular surgery follow-up along with repeat carotid ultrasound within 1 year. PCP to follow-up on this.
Carotid ultrasound
IMPRESSION: Minimal calcified carotid bulb plaque on each side, measurements suggestive of less than 50% stenosis on each side as per modified Society of Radiologists in Ultrasound consensus criteria (IAC carotid criteria white paper, 2020).
Brain MRI
IMPRESSION:
No acute intracranial abnormality noted.
EEG
CLINICAL CORRELATION:
In comparison with the most recent study performed which was unremarkable, this study was suggestive of a frontally predominant nonconvulsive seizure pattern. A similar pattern has been demonstrated for this patient in prior studies
Clinical correlation is advised.
2d Echo
CONCLUSIONS
Normal LV size and function with no regional wall motion abnormalities.
Left ventricular ejection fraction is 55-60% by Cowart's method of discs.
Mild concentric LVH.
Normal right ventricular size and function.
No significant valvular disease.
Compared to prior from March 17, 2021, no significant change.
Discharge Plan
-
Patient Disposition: Home (Routine Discharge)
Discharge Diagnosis/Procedures: Syncope - Vasovagal
History of Alzheimer's dementia, PE on Eliquis, hypothyroidism
Diet: As tolerated
Activity: As tolerated
Driving Restrictions: No driving
Activity Restrictions/Additional Instructions:
Presented for passing out at the breakfast table after eating. Concern for syncope therefore was admitted to hospital. MRI brain completed along with EEG and 2D heart ultrasound. Evaluated by cardiology believed to be related to vasovagal event.
Recommend outpatient monitor. Therefore will need to follow-up with outpatient cardiology. Metoprolol succinate has been decreased due to bradycardia into the 50s. Will need to follow up with Cardiology as an outpaitent as they have spoken to EP
and recommended a 30day wearable monitor, if no events then will need implanted monitor.
Discussed EEG findings with neurology over [place] [facility]. No indication for AEDs. Can be seen as outpatient
Carotid stenosis with 50% occlusion. Outpatient vascular surgery follow-up along with repeat carotid ultrasound within 1 year. PCP to follow-up on this.
Carotid ultrasound
IMPRESSION: Minimal calcified carotid bulb plaque on each side, measurements suggestive of less than 50% stenosis on each side as per modified Society of Radiologists in Ultrasound consensus criteria (IAC carotid criteria white paper, 2020).
Brain MRI
IMPRESSION:
No acute intracranial abnormality noted.
EEG
CLINICAL CORRELATION:
In comparison with the most recent study performed which was unremarkable, this study was suggestive of a frontally predominant nonconvulsive seizure pattern. A similar pattern has been demonstrated for this patient in prior studies
Clinical correlation is advised.
2d Echo
CONCLUSIONS
Normal LV size and function with no regional wall motion abnormalities.
Left ventricular ejection fraction is 55-60% by Cowart's method of discs.
Mild concentric LVH.
Normal right ventricular size and function.
No significant valvular disease.
Compared to prior from March 17, 2021, no significant change.
Instructions: Vasovagal Response, Syncope (Fainting) (DC)
Referrals:
Kanwal Chatman PA-C [Family Provider] -
Rudolph Bojorquez DO [Active] - in one to two weeks
Peng Naranjo MD [Active] - in one to two weeks
Ten Valerio MD [Active] - in two to three weeks
Prescriptions:
New
metoprolol succinate 25 mg Tablet Extended Release 24 Hr
12.5 mg PO DAILY 30 Days Qty: 15 0RF
Continued
memantine 10 MG tablet
10 mg PO BID
cholecalciferol (vitamin D3) 1,000 UNITS tablet
125 mcg PO DAILY
melatonin 10 MG tablet
10 mg PO HSPRN PRN (Reason: sleep)
levothyroxine 50 MCG tablet
50 mcg PO DAILY
donepezil 23 MG tablet
23 mg PO HS
Jerome Orotate Capsules 1,000 mcg capsule
1,000 mcg PO DAILY
Eliquis 5 mg Tablet
5 mg PO BID
cyanocobalamin (vitamin B-12) 1,000 mcg Tablet
1,000 mcg PO DAILY
Discontinued
metoprolol succinate 25 MG tablet extended release 24 hr
25 mg PO DAILY
Discharge Orders:
Discharge Patient (As Directed); Ordered 02/10/24
Ordered By: Antoni Richter
Discharge Date and Time
Print Language: SINGAPOREAN
--- NOTE | 2024-02-10 13:00 | CM ---
Initial assessment completed at [facility] with patient and spouse
Pharmacy verified: [facility] @ [id number] [facility]
Patient and spouse live in a multilevel home; 2 steps to enter; 13 steps between floor; inside railing present; powder room 1st floor; 2nd floor bath has walk-in shower
PLOF: per spouse patient is independent with personal care only; need budget assistant with ADL; ambulates without a device; spouse is next to her on the stairs
No SNF utilization
[facility] Health utilization in 2021 with [facility]
Spouse will transport home
Plan: discharge to home today; no services
== END 2024-02-10 13:05 | disposition home or self-care (01) | DRG 312 ==
LOC: 4 EAST ACU 16:02
PROVIDERS: Physician Assistant; ADMITTING PHYSICIAN Hospitalist; CONSULT PHYSICIAN Internal Medicine Cardiovascular Disease; EMERGENCY PHYSICIAN Student in an Organized Health Care Education/Training Program; FAMILY PHYSICIAN Physician Assistant Medical
DX: R55 Syncope and collapse (principal); G30.9 Alzheimer's disease, unspecified; F02.80 Dementia in other diseases classified elsewhere, unspecified severity, without behavioral disturbance, psychotic disturbance, mood disturbance, and anxiety; E03.9 Hypothyroidism, unspecified; Z79.01 Long term (current) use of anticoagulants
CPT/HCPCS: 70551; 80053; 80178; 82962; 83735; 84100; 84443; 84484; 85025; 93005; 93306; 93880; 95816; 96360; 99285

== ENCOUNTER → 2024-10-04 10:08 | Outpatient (REF) | payer OTHER, SELFPAY | LOC: RCS 10:08 | PROVIDERS: ATTENDING PHYSICIAN Internal Medicine Cardiovascular Disease; FAMILY PHYSICIAN Physician Assistant Medical | DX: R42 Dizziness and giddiness (principal); I42.0 Dilated cardiomyopathy; I25.10 Atherosclerotic heart disease of native coronary artery without angina pectoris; I26.99 Other pulmonary embolism without acute cor pulmonale | CPT/HCPCS: 93306 ==

== ENCOUNTER 2025-05-13 09:28 | Day surgery (SDC) | payer OTHER, SELFPAY ==
[2025-05-13 10:34] VITALS: BMI 30.6
== END 2025-05-13 11:35 | disposition home or self-care (01) ==
LOC: CATH 09:28
PROVIDERS: ATTENDING PHYSICIAN Internal Medicine Cardiovascular Disease; FAMILY PHYSICIAN Physician Assistant Medical; OTHER PHYSICIAN Internal Medicine Cardiovascular Disease
DX: Z09 Encounter for follow-up examination after completed treatment for conditions other than malignant neoplasm (principal); G30.9 Alzheimer's disease, unspecified; R42 Dizziness and giddiness; I42.0 Dilated cardiomyopathy; I25.10 Atherosclerotic heart disease of native coronary artery without angina pectoris; R55 Syncope and collapse
CPT/HCPCS: 33285; C1764; Q9967

== ENCOUNTER → 2025-05-14 15:18 | Outpatient (REF) | payer OTHER, SELFPAY | LOC: RCS 15:18 | PROVIDERS: ATTENDING PHYSICIAN Internal Medicine Cardiovascular Disease; FAMILY PHYSICIAN Physician Assistant Medical | DX: R55 Syncope and collapse (principal) | CPT/HCPCS: 93017 ==